=== PATIENT | female | born 1980 | race Caucasian/White ===

== ENCOUNTER 2018-08-29 21:39 | Inpatient (IN) | payer OTHER ==
[~2018-08-29] VITALS: Ht 154.9 cm; Wt 58.6 kg
[2018-08-29] MEDS ORDERED: D5%-LACTATED RINGERS 1,000 ML IV SCH (22:18)
[2018-08-29] MEDS ORDERED: OXYTOCIN 30U/ 0.9% NaCL 500ML 500 ML IV ONE (22:18)
[2018-08-29] MEDS ORDERED: OXYTOCIN 30U/ 0.9% NaCL 500ML 500 ML IV PRN (22:18)
[2018-08-29 22:23] VITALS: BP 116/59
[2018-08-29] MEDS ORDERED: ONDANSETRON ODT 4 MG PO PRN (22:30)
[2018-08-29] MEDS ORDERED: SODIUM CITRATE/CITRIC ACID 30 ML UDC PO PRN (22:30)
[2018-08-29] MEDS ORDERED: FENTANYL PF 100 MCG/2ML IVPush PRN (22:30)
[2018-08-29] MEDS ORDERED: CALCIUM CARBONATE 500 MG TAB.CHEW PO PRN (22:30)
[2018-08-29] MEDS ORDERED: METOCLOPRAMIDE 5 MG/ML, 2ML IVPush PRN (22:30)
[2018-08-29] MEDS ORDERED: FENTANYL PF 100 MCG/2ML IV PRN (22:30)
[2018-08-29] MEDS ORDERED: NEWBORN KIT ONE (22:48)
[2018-08-29 22:50] LABS: BASOPHILS # (AUTO) 0.03 x10^3/uL (0-0.1); BASOPHILS % (AUTO) 0 % (0-1); EOSINOPHILS # (AUTO) 0.09 x10^3/uL (0-0.4); EOSINOPHILS % (AUTO) 1 % (1-7); LYMPHOCYTES # (AUTO) 1.34 x10^3/uL (1-3.4); LYMPHOCYTES % (AUTO) 16 % (22-44); MD NO; MEAN CORPUSCULAR HEMOGLOBIN 28.5 pg (27.0-34.8); MEAN CORPUSCULAR HGB CONC 33.5 g/dL (32.4-35.8); MEAN CORPUSCULAR VOLUME 84.9 fL (80-100); MEAN PLATELET VOLUME 8.4 fL (7.4-10.4); MONOCYTES # (AUTO) 0.55 x10^3/uL (0.2-0.8); MONOCYTES % (AUTO) 6 % (2-9); NEUTROPHILS # (AUTO) 6.63 x10^3/uL (1.8-6.8); NEUTROPHILS % (AUTO) 77 % (42-75); PLATELET COUNT 205 x10^3/uL (130-400); RED BLOOD COUNT 4.47 x10^6/uL (3.82-5.3); RED CELL DISTRIBUTION WIDTH 14.3 % (9.6-15.2)
[2018-08-29] MEDS ORDERED: LEVO137T3 PO (23:20)
[2018-08-29] MEDS ORDERED: PREN1TAB60 PO (23:20)
[2018-08-30] MEDS ORDERED: LEVO125T5 PO (00:02)
[2018-08-30] MEDS ORDERED: OXYTOCIN 30U/ 0.9% NaCL 500ML 500 ML ONE ×2 (01:57→05:00)
[2018-08-30] MEDS: LACTATED RINGERS 1,000 ML IV SCH ×2 (03:33→05:11)
[2018-08-30] MEDS ORDERED: TERBUTALINE 1 MG/ML, 1ML ONE (03:45)
[2018-08-30] MEDS ORDERED: FENTANYL PF 250 MCG/5ML ONE (04:08)
[2018-08-30] MEDS ORDERED: ACETAMINOPHEN 325 MG TABLET PO PRN ×2 (05:00)
[2018-08-30] MEDS ORDERED: CALCIUM CARBONATE 500 MG TAB.CHEW PO PRN (05:00)
[2018-08-30] MEDS ORDERED: ONDANSETRON 2MG/ML, 2ML IV PRN (05:00)
[2018-08-30] MEDS ORDERED: MEASLES,MUMPS&RUBELLA VACC/PF 0.5 ML SQ PRN (05:00)
[2018-08-30] MEDS ORDERED: RHOGAM FROM BLOOD BANK 1 NOTE EA IM/IV ONE (05:00)
[2018-08-30] MEDS ORDERED: MISOPROSTOL 200 MCG TABLET PR PRN (05:00)
[2018-08-30] MEDS ORDERED: DIPH,PERTUSS(ACELL),TET VAC/PF NC IM-VACC PRN (05:00)
[2018-08-30] MEDS ORDERED: IBUPROFEN 600 MG TABLET ONE (05:00)
[2018-08-30] MEDS ORDERED: MAGNESIUM HYDROXIDE 8%, 30ML UDC PO PRN (05:00)
[2018-08-30] MEDS ORDERED: OXYcodone/APAP 5/325MG TABLET PO PRN (05:00)
[2018-08-30] MEDS: IBUPROFEN 600 MG TABLET PO PRN ×4 (05:06→23:41)
[2018-08-30] MEDS: OXYTOCIN 30U/ 0.9% NaCL 500ML 500 ML IV SCH ×3 (05:07→18:26)
[2018-08-30 07:50] VITALS: BP 130/64
[2018-08-30] MEDS: PRENATAL VIT/IRON/FA 1 EACH TABLET PO SCH (09:00)
[2018-08-30] MEDS: OXYcodone/APAP 5/325MG TABLET PO PRN (09:06)
[2018-08-30 11:50] VITALS: BP 126/81
[2018-08-30 13:03] LABS: BASOPHILS # (AUTO) 0.02 x10^3/uL (0-0.1); BASOPHILS % (AUTO) 0 % (0-1); EOSINOPHILS % (AUTO) 0 % (1-7); LYMPHOCYTES # (AUTO) 1.07 x10^3/uL (1-3.4); LYMPHOCYTES % (AUTO) 8 % (22-44); MD NO; MEAN CORPUSCULAR HEMOGLOBIN 28.4 pg (27.0-34.8); MEAN CORPUSCULAR HGB CONC 33.7 g/dL (32.4-35.8); MEAN CORPUSCULAR VOLUME 84.1 fL (80-100); MEAN PLATELET VOLUME 8.8 fL (7.4-10.4); MONOCYTES # (AUTO) 0.57 x10^3/uL (0.2-0.8); MONOCYTES % (AUTO) 4 % (2-9); NEUTROPHILS # (AUTO) 12.33 x10^3/uL (1.8-6.8); NEUTROPHILS % (AUTO) 88 % (42-75); PLATELET COUNT 182 x10^3/uL (130-400); RED BLOOD COUNT 3.69 x10^6/uL (3.82-5.3)
[2018-08-30 16:00] VITALS: BP 111/70
[2018-08-30 19:40] VITALS: BP 126/79
[2018-08-30] MEDS: DOCUSATE 100 MG CAPSULE PO PRN (23:41)
[2018-08-31 00:10] VITALS: BP 111/80
[2018-08-31 07:30] VITALS: BP 119/74
[2018-08-31] MEDS: OXYcodone/APAP 5/325MG TABLET PO PRN (08:00)
[2018-08-31] MEDS: DOCUSATE 100 MG CAPSULE PO PRN (08:00)
[2018-08-31] MEDS: PRENATAL VIT/IRON/FA 1 EACH TABLET PO SCH (08:00)
[2018-08-31] MEDS: IBUPROFEN 600 MG TABLET PO PRN (08:00)
[2018-08-31] MEDS ORDERED: IBUP-1222 PO (11:19)
== END 2018-08-31 13:21 | disposition home or self-care (01) | DRG 807 ==
LOC: LDOP 21:39 → LDIP 21:59 → 2NW 08-30 07:28
PROVIDERS: ADMIT Obstetrics & Gynecology; ATTEND Obstetrics & Gynecology
PROC: 10E0XZZ Delivery of Products of Conception, External Approach (ICD-10-PCS; principal; 2018-08-30)
PROC: 0KQM0ZZ Repair Perineum Muscle, Open Approach (ICD-10-PCS; 2018-08-30)
DX: O69.1XX0 Labor and delivery complicated by cord around neck, with compression, not applicable or unspecified (principal); Z37.0 Single live birth; Z3A.40 40 weeks gestation of pregnancy; O70.1 Second degree perineal laceration during delivery; Z88.0 Allergy status to penicillin; Z88.8 Allergy status to other drugs, medicaments and biological substances; Z23 Encounter for immunization
CPT/HCPCS: 36415; 82803; 85025; 86850; 86900; G0378; J3010; J2590; J7120

== ENCOUNTER → 2020-05-13 | Outpatient (CLI) | payer MEDICAID ==
[~2020-05-13] MED LIST: IBUP-1222 PO; LEVO125T5 PO; LEVO137T3 PO; PREN1TAB60 PO
== END | disposition home or self-care (01) ==
LOC: CFH 07:40
PROVIDERS: ATTEND Obstetrics & Gynecology
DX: R92.1 Mammographic calcification found on diagnostic imaging of breast (principal); N64.4 Mastodynia
CPT/HCPCS: 77066; G0279

== ENCOUNTER → 2020-05-23 | Outpatient (CLI) | payer MEDICAID | END | disposition home or self-care (01) | LOC: CFH 14:40 | PROVIDERS: ATTEND Obstetrics & Gynecology | DX: N64.4 Mastodynia (principal); N63.10 Unspecified lump in the right breast, unspecified quadrant | CPT/HCPCS: 76642 ==